=== PATIENT | female | born 1950 | race Caucasian/White ===

== ENCOUNTER 2017-07-17 07:54 | Day surgery (SDC) | payer BC, OTHER ==
[2017-07-17] MEDS ORDERED: TETRACAINE 0.5% OPHTH 1 DOSE AFFEYE ONE ×4 (08:30→11:07)
[2017-07-17] MEDS ORDERED: VIGAMOX 0.5% OPHTH 1 DOSE AFFEYE ONE ×6 (08:35→11:21)
[2017-07-17] MEDS ORDERED: PROLENSA OPHTH 1 DOSE AFFEYE ONE (08:46)
[2017-07-17] MEDS ORDERED: ALPHAGAN-P OPHTH 1 DOSE AFFEYE ONE (08:47)
[2017-07-17] MEDS ORDERED: MYDRIACIL OPHTH 1 DOSE AFFEYE ONE ×3 (08:48→08:50)
[2017-07-17] MEDS ORDERED: CYCLOGYL 1% OPHTH 1 DOSE OP ONE ×3 (08:48→08:50)
[2017-07-17] MEDS ORDERED: AK-DILATE 2.5% OPHTH 1 DOSE OP ONE ×3 (08:48→08:50)
[2017-07-17] MEDS ORDERED: NS 500 ML IV 500 ML IV ONE (08:48)
[2017-07-17] MEDS ORDERED: VERSED ONE (10:48)
[2017-07-17] MEDS ORDERED: BETADINE OPHTH SOLN 5% EACHEYE ONE (10:55)
[2017-07-17] MEDS ORDERED: XYLOCAINE-MPF 1% IJ ONE ×2 (10:57→11:07)
[2017-07-17] MEDS ORDERED: BSS OPHTH (PLAIN) 500 ML with VANCOMYCIN HCL 500 MG VIAL 25 MG, ADRENALINE CHL INJ 1 MG IR ONE ×3 (10:57)
[2017-07-17] MEDS ORDERED: ADRENALINE CHL INJ IJ ONE ×2 (10:57→11:07)
[2017-07-17] MEDS ORDERED: DUOVISC IO ONE (11:07)
[2017-07-17 11:40] VITALS: BP 147/72
== END 2017-07-17 11:49 | disposition home or self-care (01) ==
LOC: SURG1 07:54
PROVIDERS: ATTEND Ophthalmology
PROC: 08DJ3ZZ Extraction of Right Lens, Percutaneous Approach (ICD-10-PCS; principal; 2017-07-17 11:15)
PROC: 08RJ3JZ Replacement of Right Lens with Synthetic Substitute, Percutaneous Approach (ICD-10-PCS; principal; 2017-07-17 11:15)
DX: H25.11 Age-related nuclear cataract, right eye (principal); H25.011 Cortical age-related cataract, right eye; H25.041 Posterior subcapsular polar age-related cataract, right eye; H52.221 Regular astigmatism, right eye
CPT/HCPCS: A9270; A4217; J0170; J2250; J3370